=== PATIENT | male | born 1940 | race Caucasian/White ===

== ENCOUNTER 2017-09-20 20:38 | Inpatient (IN) | payer MEDICARE, OTHER ==
[~2017-09-20 20:38] MED LIST: ARICEPT10 MG PO; ATROVENT HFA12.9 GM INH; BAYER CHEWABLE81 MG PO; BETAPACE 80 MG80 MG PO; ELIQUIS5 MG PO; FLOMAX0.4 MG PO; PEPCID40 MG PO; VITAMIN D50000 UNIT PO; ZOCOR40 MG PO
[2017-09-20 21:28] LABS: APPEARANCE CLEAR (CLEAR); BILIRUBIN NEGATIVE (NEGATIVE); COLOR YELLOW (YELLOW); GLUCOSE NEGATIVE (NEGATIVE); KETONE NEGATIVE (NEGATIVE); NITRITE NEGATIVE (NEGATIVE); PROTEIN NEGATIVE (NEGATIVE); UROBILINOGEN NORMAL (NORMAL)
[2017-09-20 21:29] LABS: BACTERIA FEW /hpf (NONE SEEN); RED CELLS - URINE >50 /hpf (0-5); WHITE CELLS - URINE 0-5 /hpf (0-5)
[2017-09-20 22:14] LABS: BASOPHILS 0 % (0-2); EOSINOPHILS 0 % (0-7); HEMATOCRIT 51.3 % (42.0-54.0); HEMOGLOBIN 17.4 g/dL (13.5-17.5); IMMATURE GRANULOCYTES 0.2 % (0-5); LYMPHOCYTES 4.4 % (15-50); MCH 33.9 pg (26.0-34.0); MCHC 33.9 g/dL (31.0-37.0); MCV 99.8 fL (80.0-100.0); MEAN PLATELET VOLUME 10.7 fL (7.4-10.4); MONOCYTES 6.8 % (2-11); NEUTROPHILS 88.6 % (40-80); PLATELET COUNT 183 10x3/uL (130-400); RBC 5.14 10x6/uL (4.20-6.10); RDW 13.1 % (11.5-14.5); WBC 16.5 10x3/uL (4.8-10.8)
[2017-09-20 22:23] LABS: APTT 27.4 SECONDS (22.8-39.4); INR 1.21 (0.85-1.17); PROTIME 15.2 SECONDS (11.6-15.0)
[2017-09-20 22:28] LABS: ALBUMIN 3.7 g/dL (3.4-5.0); ANION GAP 13.3 mmol/L (8-16); BILIRUBIN - TOTAL 0.8 mg/dL (0.2-1.3); CALCIUM 9.9 mg/dL (8.5-10.1); CARBON DIOXIDE 26.8 mmol/L (21.0-32.0); CREATININE - SERUM 3.3 mg/dL (0.6-1.3); POTASSIUM - SERUM 4.1 mmol/L (3.5-5.1); PROTEIN - SERUM 7.1 g/dL (6.4-8.2)
[2017-09-20 22:35] LABS: MAGNESIUM - SERUM 2.3 mg/dL (1.8-2.4); TROPONIN-I 0.019 ng/mL (0.000-0.060)
[2017-09-21] VITALS (7 sets, daily range): BP systolic 121–144; BP diastolic 79–89; BMI 17.2; BMI 24.8
[2017-09-21] MEDS ORDERED: CIPRO500 MG PO (03:36)
[2017-09-21] MEDS ORDERED: TRAZODONE HCL150 MG PO (03:36)
[2017-09-21] MEDS ORDERED: COLACE100 MG PO (03:37)
[2017-09-21] MEDS ORDERED: PHILLIPS'400 MG/5 M PO (03:40)
[2017-09-21] MEDS ORDERED: MYLANTA / MAALO30 ML PO (03:41)
[2017-09-21] MEDS ORDERED: ACETAMINOPHEN325 MG PO (03:42)
[2017-09-21 05:46] LABS: BASOPHILS 0.1 % (0-2); EOSINOPHILS 0.2 % (0-7); HEMATOCRIT 47.2 % (42.0-54.0); HEMOGLOBIN 16.1 g/dL (13.5-17.5); IMMATURE GRANULOCYTES 0.2 % (0-5); LYMPHOCYTES 10.2 % (15-50); MCH 33.8 pg (26.0-34.0); MCHC 34.1 g/dL (31.0-37.0); MCV 99.2 fL (80.0-100.0); MONOCYTES 8.4 % (2-11); NEUTROPHILS 80.9 % (40-80); PLATELET COUNT 156 10x3/uL (130-400); RBC 4.76 10x6/uL (4.20-6.10); RDW 13.1 % (11.5-14.5); WBC 12.7 10x3/uL (4.8-10.8)
[2017-09-21 05:59] LABS: ANION GAP 11.2 mmol/L (8-16); CALCIUM 8.9 mg/dL (8.5-10.1); CARBON DIOXIDE 27.5 mmol/L (21.0-32.0); POTASSIUM - SERUM 3.7 mmol/L (3.5-5.1)
[2017-09-21 06:00] LABS: CREATININE - SERUM 1.4 mg/dL (0.6-1.3)
--- NOTE | 2017-09-21 08:07 | NUR ---
AM ROUNDS - PT IS IN BED AND AWAKE AT THIS TIME. BECERRIL DRAINING BLOOD. PT PULLED ON BECERRIL AND HAD SPLIT HIS PENIS. BECERRIL IS STILL INTACT. BECERRIL HAD BEEN FLUSHED. PT PULLED OUT IV. PT PULLED OFF HEART MONITOR. GRACIE MAT ON AND WORKING. PT IS CONFUSED. BED AT LOWEST POSITION. CALL GALLARDO IN REACH. SIDE RAILS UP X2. WILL CONTINUE TO MONITOR
--- NOTE | 2017-09-21 19:43 | NUR ---
RECEIVED REPORT, WILL ASSUME CARE OF PT, PT IS CONFUSED, WOULD LIKE TO BE DRESSED FOR VISTORS, EXPLAINED IT NIGHTTIME, BED IS LOW, SRX2, GRACIE ALARM IS ON, CALL LIGHT IN REACH, WILL CONTINUE PLAN OF CARE
[2017-09-22] VITALS: BP 107/67
--- NOTE | 2017-09-22 01:25 | NUR ---
LYING IN BED, WILL CONTINUE WITH PLAN OF CARE.
--- NOTE | 2017-09-22 01:55 | NUR ---
ASSESSMENT COMPLETE, SEE FLOWSHEET, PT SLEEPING, BED IS LOW, SRX2, GRACIE ALARM AND BED ALARM ON, CALL LIGHT IN REACH,WILL CONTINUE PLAN OF CARE
[2017-09-22 04:00] VITALS: BP 98/44
--- NOTE | 2017-09-22 07:40 | NUR ---
AM ROUNDS - PT IN BED AND APEARS TO BE SLEEPING WITH EQUAL AND NON LABORED BREATHING AT THIS TIME. AT BEDSIDE. NO IV, PT PULLS OUT. BECERRIL DRAINING AND IS DARK BROWN IN COLOR. GRACIE MAT AND BED ALARM ON. PT PULLS OFF HEART MONITOR. SCD ARE ON AT THIS TIME. BED AT LOWEST POSITION. CALL GALLARDO IN REACH. SIDE RAILS UP X2. WILL CONTINUE TO MONITOR
[2017-09-22 08:00] VITALS: BP 141/79
[2017-09-22 08:42] LABS: BASOPHILS 0.1 % (0-2); EOSINOPHILS 0.6 % (0-7); HEMATOCRIT 47.1 % (42.0-54.0); HEMOGLOBIN 15.9 g/dL (13.5-17.5); IMMATURE GRANULOCYTES 0.2 % (0-5); LYMPHOCYTES 12.5 % (15-50); MCH 33.8 pg (26.0-34.0); MCHC 33.8 g/dL (31.0-37.0); MEAN PLATELET VOLUME 10.4 fL (7.4-10.4); NEUTROPHILS 79.6 % (40-80); PLATELET COUNT 149 10x3/uL (130-400); RBC 4.71 10x6/uL (4.20-6.10); RDW 12.6 % (11.5-14.5)
[2017-09-22 08:47] LABS: WBC 9.5 10x3/uL (4.8-10.8)
[2017-09-22 09:20] LABS: CALCIUM 8.8 mg/dL (8.5-10.1); CARBON DIOXIDE 30.1 mmol/L (21.0-32.0); CHLORIDE - SERUM 109 mmol/L (98-107); GLUCOSE 136 mg/dL (74-106); POTASSIUM - SERUM 4.2 mmol/L (3.5-5.1); SODIUM 141 mmol/L (136-145)
[2017-09-22 09:21] LABS: CALC OSMOLALITY 283 mosm/kg (275-300); CREATININE - SERUM 0.8 mg/dL (0.6-1.3); UREA NITROGEN 15 mg/dL (7-18); eGFR NON AFRICAN AMERICAN > 90 mL/min (90-120)
--- NOTE | 2017-09-22 09:54 | NUR ---
WENT TO GIVE PT MONRNING MEDICATION. PT WILL ONLY WAKE TO PAINFUL STIMULI. PT WILL NOT WAKE TO TAKE MEDICATIONS. FAMILY IS CONCERNED ABOUT PT'S PO INTAKE. PT HAS NO IV DO TO HIM PULLING OUT IVS THAT ARE PLACED. PT IS TAKING IN MINIMAL PO. WILL CONTINUE TO MONITOR
[2017-09-22 12:00] VITALS: BP 124/71
[2017-09-22 16:00] VITALS: BP 137/84
--- NOTE | 2017-09-22 19:28 | NUR ---
RECEIVED REPORT, WILL ASSUME CARE OF PT, PT IS CONFUSED AT THIS TIME, BED IS LOW, SRX3, CALL LIGHT IN REACH, GRACIE ALARM AND BED ALARM ARE ON, WILL CONTINUE PLAN OF CARE
[2017-09-22 20:00] VITALS: BP 133/91
--- NOTE | 2017-09-22 23:16 | NUR ---
PT RESTING WITH EYES SCLOSED. RESP EVEN AND REGULAR. SR UP X2, CALL LIGHT WITHIN REACH.
[2017-09-23 04:00] VITALS: BP 129/69
[2017-09-23 06:27] LABS: BASOPHILS 0.1 % (0-2); EOSINOPHILS 1.9 % (0-7); HEMATOCRIT 49.1 % (42.0-54.0); HEMOGLOBIN 16.8 g/dL (13.5-17.5); IMMATURE GRANULOCYTES 0.1 % (0-5); MCH 34.2 pg (26.0-34.0); MCHC 34.2 g/dL (31.0-37.0); MEAN PLATELET VOLUME 11.2 fL (7.4-10.4); MONOCYTES 6.4 % (2-11); NEUTROPHILS 75.5 % (40-80); PLATELET COUNT 154 10x3/uL (130-400); RBC 4.91 10x6/uL (4.20-6.10); RDW 12.6 % (11.5-14.5); WBC 8.3 10x3/uL (4.8-10.8)
[2017-09-23 06:52] LABS: CALC OSMOLALITY 286 mosm/kg (275-300); CALCIUM 9.1 mg/dL (8.5-10.1); CARBON DIOXIDE 31.7 mmol/L (21.0-32.0); CHLORIDE - SERUM 107 mmol/L (98-107); CREATININE - SERUM 0.8 mg/dL (0.6-1.3); GLUCOSE 97 mg/dL (74-106); POTASSIUM - SERUM 3.7 mmol/L (3.5-5.1); SODIUM 144 mmol/L (136-145); UREA NITROGEN 13 mg/dL (7-18); eGFR NON AFRICAN AMERICAN > 90 mL/min (90-120)
[2017-09-23 08:00] VITALS: BP 119/74
--- NOTE | 2017-09-23 13:35 | NUR ---
Nutrition Follow Up: Spoke with pt's who reported that pt is eating some better. stated that pt likes Ensure and ice cream. Nursing reported that pt needs assistance during meal times to be reminded to eat. Pt is eating 33% meal avg on a regular pureed diet. +BM 09/23/17. Labs and meds reviewed. Rec continue current diet. Rec assistance with meals. Will send Ensure TID and ice-cream BID. RD following.
[2017-09-23 16:00] VITALS: BP 122/71
--- NOTE | 2017-09-23 16:45 | NUR ---
CONFUSED. CONTINUES TRYING TO GET OUT OF BED. BECERRIL CATHETER PULLED OUT. URINE BLOODY. ASSIST CLEANING UP AND BACK IN BED X2 NURSES. PAGE TO INFORM OF INCIDENT. CONTINUE PLAN OF CARE. BED LOCKED AND LOW. CALL LIGHT IN REACH. THREE SIDERAIL UP. REFUSE SCDs.
--- NOTE | 2017-09-23 18:20 | NUR ---
GRACIE BED ORDERED AND ARRIVED. PLACE IN GRACIE BED. ZIPPERS SECURED FOR PATIENT SAFETY. PREPARE SHIFT CHANGE REPORT.
[2017-09-23 19:00] VITALS: BP 108/63
--- NOTE | 2017-09-23 20:27 | NUR ---
PT IN BED RESTING QUIETLY. GRACIE BED OPENED AND PT GIVEN WATER AND MEDICATION. BREATHING EVEN AND UNLABORED. DENIES ANY PAIN OR NEEDS AT THIS TIME. BED IN LOW POSITION, CALL LIGHT WITHIN REACH.
--- NOTE | 2017-09-23 21:39 | NUR ---
OPENED GRACIE BED TO CHANGE PTS LINEN. PT BEGAN SHOWING S/S AGITATION AND ATTEMPTING TO CRAWL OUT OF THE BED. GAVE PT PRN ATIVAN. BREATHING EVEN AND UNLABORED. BED IN LOW POSITION, CALL LIGHT WITHIN REACH. WILL CTM.
[2017-09-24] VITALS: BP 115/66
--- NOTE | 2017-09-24 02:00 | NUR ---
PT IN GRACIE BED. RESTING QUIETLY WITH EYES CLOSED. BED IN LOW POSITION, CALL LIGHT WITHIN REACH.
--- NOTE | 2017-09-24 03:43 | NUR ---
PT STARTED TAKING CLOTHES AND BREIFS OFF AND WAS SIDEWAYS IN THE GRACIE BED AND HAD AN INCONTINENT EPISODE. WENT TO STRAIGHTEN UP PT AND CLEAN HIM UP AND HE BECAME VERY AGITATED AND UPSET. PRN ATIVAN GIVEN. WILL CTM. BED IN LOW POSITION, CALL LIGHT WITHIN REACH.
[2017-09-24 04:00] VITALS: BP 130/105
--- NOTE | 2017-09-24 05:00 | NUR ---
PT RESTING IN BED. NO DISTRESS. CPOC.
--- NOTE | 2017-09-24 07:10 | NUR ---
RECEIVED REPORT. ASSUMED CARE OF PATIENT. PATIENT IN POSEYBED. RESP EVEN AND UNLABORED. NO ACUTE DISTRESS. PATIENT SPEECH IS GARBLED, NOT ANSWERING QUESTIONS, JUST MUMBLING. REFUSING SCDS, REFUSING TELEMETRY.
--- NOTE | 2017-09-24 07:25 | NUR ---
PATIENT RESTING IN GRACIE BED. CONFUSED. PATIENT TURNING FROM SIDE TO BACK AND PULLING AT SIDES OF GRACIE BED. SPEECH IS INCOMPREHENSIBLE, VERY GARBLED. RESP EVEN AND UNLABORED. NO ACUTE DISTRESS.
[2017-09-24 08:00] VITALS: BP 161/109
--- NOTE | 2017-09-24 09:00 | NUR ---
PATIENT TOLERATED AM MEDS WELL IN [place]AN[place]A PUDDING. CONSUMED ENTIRE PUDDING CUP. PO FLUIDS ENCOURAGED AND TOLERATED WELL. NO COMBATIVE BEHAVIOR AT THIS TIME. NO DISTRESS.
--- NOTE | 2017-09-24 10:30 | NUR ---
PATIENT TURNED AND REPOSITIONED. PO FLUIDS ENCOURAGED AND TOLERATED WELL. NO DISTRESS. RESP EVEN AND UNLABORED. PATIENTS IS NOW AT BEDSIDE.
[2017-09-24 11:24] VITALS: BP 158/113
[2017-09-24] MEDS ORDERED: Levaquin PO (11:45)
[2017-09-24] MEDS ORDERED: FLOMAX0.4 MG PO (11:46)
[2017-09-24] MEDS ORDERED: CARDURA1 MG PO (11:47)
[2017-09-24] MEDS ORDERED: BETAPACE 80 MG80 MG PO (11:48)
[2017-09-24] MEDS ORDERED: PEPCID20 MG PO (11:49)
[2017-09-24] MEDS ORDERED: FLORAJEN3 CAPS460 MG PO (11:49)
[2017-09-24] MEDS ORDERED: VITAMIN D5000 UNIT PO (11:50)
--- NOTE | 2017-09-24 12:55 | NUR ---
UNABLE TO ASK PT IF HE WANTS FLU VACCINE. PT WITH DEMENTIA AND UNABLE TO ANSWER CORRECTLY.
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
--- NOTE | 2017-09-24 14:10 | NUR ---
RESTING IN BED WITH EYES CLOSED. RESP EVEN AND UNLABORED. NO COMBATIVE BEHAVIOR. CALL LIGHT WITHIN REACH. NO DISTRESS.
[2017-09-24 16:00] VITALS: BP 152/80
--- NOTE | 2017-09-24 17:03 | NUR ---
CALLED LONG TERM AND SPOKE TO BECKY. REPORT GIVEN. PATIENT TO BE TRANSFERRED TO ROOM 1133.
--- NOTE | 2017-09-24 17:06 | NUR ---
CALLED AND SPOKE TO PATIENTS TO NOTIFY HER THAT PATIENT WILL BE TRANSFERRED TO ROOM 1138 AND GAVE HER THE DIRECT NUMBER TO THE NURSES STATION IN CASE SHE WOULD LIKE TO CALL AND CHECK ON HIM THIS EVENING. INSTRUCTED HER TO CALL IF SHE HAD ANY QUESTIONS FOR US. SHE THANKED THIS ANESTHESIOLOGIST ASSISTANT CERTIFIED FOR CALLING TO LET HER KNOW OF THE TRANSFER.
--- NOTE | 2017-09-24 17:51 | NUR ---
PATIENT LEFT UNIT VIA WHEELCHAIR WITH ALL PERSONAL BELONGINGS. PATIENT TRANSFERRED DOWN TO ROOM 1133 IN [facility]. NO DISTRESS UPON LEAVING UNIT.
== END 2017-09-24 17:53 | disposition short-term general hospital (02) | DRG 683 ==
LOC: D.ER 20:38 → D.M2 23:32
PROVIDERS: Emergency Medicine; Physician Assistant Medical; ADMIT Family Medicine
PROC: 0T9B70Z Drainage of Bladder with Drainage Device, Via Natural or Artificial Opening (ICD-10-PCS; principal; 2017-09-20)
DX: N17.9 Acute kidney failure, unspecified (principal); N39.0 Urinary tract infection, site not specified; I69.954 Hemiplegia and hemiparesis following unspecified cerebrovascular disease affecting left non-dominant side; F02.81 Dementia in other diseases classified elsewhere, unspecified severity, with behavioral disturbance; S37.33XA Laceration of urethra, initial encounter; I48.2 Chronic atrial fibrillation; I69.919 Unspecified symptoms and signs involving cognitive functions following unspecified cerebrovascular disease; G31.83 Neurocognitive disorder with Lewy bodies; K21.9 Gastro-esophageal reflux disease without esophagitis; N40.0 Benign prostatic hyperplasia without lower urinary tract symptoms; Z74.09 Other reduced mobility; E78.5 Hyperlipidemia, unspecified; J44.9 Chronic obstructive pulmonary disease, unspecified; E55.9 Vitamin D deficiency, unspecified; F10.10 Alcohol abuse, uncomplicated; E86.0 Dehydration; K59.00 Constipation, unspecified; Y84.6 Urinary catheterization as the cause of abnormal reaction of the patient, or of later complication, without mention of misadventure at the time of the procedure; Z95.0 Presence of cardiac pacemaker; Z72.0 Tobacco use

== ENCOUNTER 2017-09-24 18:36 | Inpatient (IN) | payer MEDICARE, OTHER ==
--- NOTE | 2017-09-24 17:55 | NUR ---
Received patient to unit via W/C with staff from [facility], oriented to self only. admitted for Dementia with behaviors, was aggressive upstairs to point of requiring one on one. Presently calm but uinccoperative with transferring to different w/c, required 2 person assist. Spouse Olena Brown contacted, verbal consent given. States she is not sure about the code status, stating she will bring patients living will on .
[~2017-09-24 18:36] MED LIST changes: +ACETAMINOPHEN325 MG PO; +CARDURA1 MG PO; +CIPRO500 MG PO; +COLACE100 MG PO; +FLORAJEN3 CAPS460 MG PO; +Levaquin PO; +MYLANTA / MAALO30 ML PO; +PEPCID20 MG PO; +PHILLIPS'400 MG/5 M PO; +TRAZODONE HCL150 MG PO; +VITAMIN D5000 UNIT PO
[2017-09-24 20:39] VITALS: BP 142/58
[2017-09-24 21:07] VITALS: BP 142/58; BMI 24.2
--- NOTE | 2017-09-25 03:18 | NUR ---
RECEIVED IN HALLWAY. SITTING IN RECLINER OUTSIDE OF NURSES STATION. VERY CONFUSED. UNABLE TO ANSWER MOST OF HIS ADMIT ASSESSMENT QUESTIONS. CALM AND COOPERATIVE WITH CARE AND ASSESSMENTS. NO SIGNS OF AGGRESSION. REDIRECT AND REORIENT NEEDED. RESTING EYES CLOSED AT THIS TIME. CONTINUE PLAN OF CARE
[2017-09-25 07:24] LABS: HEMOGLOBIN A1C 5.8 % (4.8-6.0)
[2017-09-25 07:38] LABS: ANION GAP 12.3 mmol/L (8-16); CALCIUM 9.9 mg/dL (8.5-10.1); CARBON DIOXIDE 28.9 mmol/L (21.0-32.0); CHOL - HDL RATIO 2.5 ratio (2.3-4.9); CREATININE - SERUM 2.4 mg/dL (0.6-1.3); LDL-HDL RATIO 1.3 ratio (1.5-3.5); POTASSIUM - SERUM 4.2 mmol/L (3.5-5.1); PROTEIN - SERUM 6.8 g/dL (6.4-8.2); THYROID STIMULATING HORMONE 1.58 uIU/mL (0.36-3.74)
[2017-09-25 08:13] VITALS: BMI 24.1
[2017-09-25 10:32] VITALS: Wt 76.4 kg
--- NOTE | 2017-09-25 10:34 | NUR ---
PT IS VERY CONFUSED WITH NO INSIGHT INTO LIMITATIONS. PT HAS NO ABILITY TO RETAIN EDUCATION OR INFORMATION. PT REQUIRES FREQUENT REDIRECTION DUE TO HIS STM LOSS. NO AGGRESSION NOTED. MEDICATIONS GIVEN ORDERED. FALL PRECUATIONS MAINTAINED. WILL CONTINUE TO MONITOR AND CONTINUE WITH PLAN OF CARE.
--- NOTE | 2017-09-25 11:00 | NUR ---
HELD PATIENT'S LACTOBICILLIS D/T PATIENT IS SLEEPING AND UNABLE TO AWAKEN.
[2017-09-25 11:21] VITALS: BP 166/104
--- NOTE | 2017-09-25 18:32 | NUR ---
Alert, calm, resting in chair in day room. No s/s pain or distress.
[2017-09-25 19:38] VITALS: BP 105/68
--- NOTE | 2017-09-26 02:01 | NUR ---
RECEIVED IN HALLWAY. SITTING IN RECLINER OUTSIDE OF NURSES STATION. CALM AND COOPERATIVE [facility] CARE AND ASSESSMENT. NO SIGNS OF AGGRESSION THIS PM. REDIRECT AND REORIENT NEEDED. RESTING IN BED WITH EYES CLOSED AT THIS TIME. CONTINUE PLAN OF CARE.
--- NOTE | 2017-09-26 05:44 | PSY ---
PATIENT NAME:WASHINGTON ANGLIN MEDICAL RECORD: [id number] : 39 LOCATION:[facility] ADMISSION DATE: 09/24/17 ACCOUNT: [id number] PSYCHIATRIC EVALUATION DATE OF EVALUATION: 09/25/17 IDENTIFYING DATA: A 77-year-old white male with past history of dementia, transferred from the medical floor. HISTORY OF PRESENT ILLNESS: This patient was diagnosed with Lewy body dementia several years ago. He also has a past history of cerebrovascular disease and likely has elements of vascular dementia as well. He also has a past history of alcohol abuse. The patient is a resident of [facility]. He developed a significant urinary tract infection, which resulted in his admission to the medical floor. At the time of admission, the patient was very disoriented and confused. He did not understand that he was in the hospital or why he was here. The past treatment has included anxiolytics and Aricept. The patient has not been treated with antipsychotic medications. This is appropriate considering his diagnosis. PAST MEDICAL HISTORY: Significant for recent urinary tract infection, also history of hypertension, old CVA, gastroesophageal reflux disease, hyperlipidemia, COPD, and vitamin D deficiency. ALLERGIES: INCLUDE HALDOL AND AMBIEN. FAMILY HISTORY: Essentially noncontributory. SOCIAL HISTORY: The patient has been a current smoker. Also, has a past history of alcohol abuse. The patient is . MENTAL STATUS: On interview, the patient is rather sleepy this morning. He required p.r.n. medication last night because of agitation. Mood is for the most part euthymic. Affect is very constricted. Speech is terse. Content of thought is negative for overt psychosis. The patient is oriented only to person. He has global memory impairment. ASSESSMENT: AXIS I: Lewy body dementia. AXIS II: No diagnosis. AXIS III: Urinary tract infection, chronic atrial fibrillation, hypertension, past history of cerebrovascular disease, gastroesophageal reflux disease, chronic obstructive pulmonary disease, benign prostatic hyperplasia, hyperlipidemia, and vitamin D deficiency. AXIS IV: Severe. AXIS V: 36. PLAN: 1. The patient is admitted for further workup and medication adjustment as indicated. 2. Daily supportive therapy. 3. We will assist referring physician and family with aftercare plans. TRANSINT:[id number] Voice Confirmation ID: [id number] DOCUMENT ID: [id number] YVETTE ALMANZAR III, MD at 0544 CC: [id number] DICTATION DATE: 09/25/17 112 MORTGAGE ADVISOR: 09/25/17 1143 ADM IN [place] [id number] [place] [address]
[2017-09-26 07:24] LABS: FOLATE (FOLIC ACID) - SERUM 14.4 ng/mL (>3.0); RAPID PLASMA REAGIN Non Reactive (Non Reactive); VITAMIN D 25 HYDROXY 47.1 ng/mL (30.0-100.0)
[2017-09-26 07:54] LABS: ANION GAP 12.5 mmol/L (8-16); CALCIUM 9.8 mg/dL (8.5-10.1); CARBON DIOXIDE 28.1 mmol/L (21.0-32.0); CREATININE - SERUM 4.1 mg/dL (0.6-1.3); POTASSIUM - SERUM 4.6 mmol/L (3.5-5.1)
[2017-09-26 08:30] VITALS: BP 110/76
--- NOTE | 2017-09-26 15:15 | NUR ---
B) PATIENT IS MORE ALERT THIS AFTERNOON, HE IS ABLE TO ANSWER QUESTIONS APPROPRIATELY, HE SAYS HE WAS ON REHAB TO GET STRONGER BECAUSE APPARENTLY HE WAS ON A DRUG THAT SEDATED HIM AND HE CAUGHT PNEUMONIA. HE SAYS HE WAS WALKING AT HOME PRIOR TO HOSPITALIZATION. I) PROVIDE PRESCRIBED MEDS. R) PATIENT IS COMPLIANT WITH MEDS AND UNIT MILIEU. P) CONTINUE POC.
--- NOTE | 2017-09-26 16:11 | NUR ---
CALLED DR. BELTRAN'S OFFICE TO LET THEM KNOW DR. BELTRAN HAS A CONSULT FROM DR. BUCIO. STAFF STATED THEY WILL LET HIM KNOW.
[2017-09-26 19:30] VITALS: BP 137/72
--- NOTE | 2017-09-27 03:31 | NUR ---
B) patient is alert and oriented, calm and cooperative with care and assessment, I) Administered scheduled medications, monitored for aggression and for safety R) medication compliant, no aggression noted, calm and cooperative, P) Continue plan of care.
--- NOTE | 2017-09-27 07:21 | NUR ---
PATIENT HAS NOT VOIDED URINE ALL NIGHT, CALLED DR. BUCIO, DID DO A BLADDER SCAN AND HE HAS 521 ML IN BLADDER, ASKED DR. BUCIO IF HE WANTED ME TO DO AN IN AND OUT, HE SAID "NO, HE IS A CHRONIC BLADDER AND HE HAS PULLED HIS BECERRIL OUT." DR. BUCIO SUGGESTS WE CONSULT DR. JUNE WE DO NOT WANT TO CAUSE TRAUMA. WILL CONSULT.
[2017-09-27 07:34] LABS: ANION GAP 15.5 mmol/L (8-16); CALCIUM 9.4 mg/dL (8.5-10.1); CARBON DIOXIDE 27.2 mmol/L (21.0-32.0); POTASSIUM - SERUM 4.7 mmol/L (3.5-5.1); URIC ACID 9.1 mg/dL (2.6-7.2)
[2017-09-27 07:40] LABS: CREATININE - SERUM 5.8 mg/dL (0.6-1.3)
--- NOTE | 2017-09-27 08:15 | NUR ---
PATIENT HAD U/S OF KIDNEYS, SHE ADVISES A BECERRIL, SPOKE TO DR BUCIO, HE SAYS TO INSERT A BECERRIL AND LEAVE IT IN.
--- NOTE | 2017-09-27 08:26 | NUR ---
16 FR BECERRIL INSERTED INTO URETHA, IMMEDIATE RETURN WITH SMALL AMOUNT OF BLOOD NOTED. DID CLAMP OFF TUBING AFTER 1000 CC. DID OBTAIN UA/C&S.
[2017-09-27 08:30] VITALS: BP 116/71
[2017-09-27 09:03] LABS: APPEARANCE CLEAR (CLEAR); BILIRUBIN NEGATIVE (NEGATIVE); COLOR YELLOW (YELLOW); GLUCOSE NEGATIVE (NEGATIVE); KETONE NEGATIVE (NEGATIVE); NITRITE NEGATIVE (NEGATIVE); PROTEIN NEGATIVE (NEGATIVE); SPECIFIC GRAVITY 1.015 (1.005-1.020); UROBILINOGEN NORMAL (NORMAL)
[2017-09-27 09:04] LABS: BACTERIA FEW /hpf (NONE SEEN); EPITHELIAL CELLS 0-5 /hpf (0-5); HYALINE CAST 0-5 /lpf (NONE SEEN); MUCUS <1+ /lpf (NONE SEEN); WHITE CELLS - URINE 0-5 /hpf (0-5)
--- NOTE | 2017-09-27 10:01 | PN ---
PATIENT:WASHINGTON ANGLIN MEDICAL RECORD: [id number] LOCATION:[facility] ADMISSION DATE: 09/24/17 PROGRESS NOTE DATE OF SERVICE: 09/26/2017 SUBJECTIVE: No new complaint. OBJECTIVE: The patient remains sleepy. He is not receiving any routine sedating psychiatric medications. He is passively cooperative. On exam, mood is euthymic. Affect constricted. Speech is minimal. Content of thought is negative for clear cut psychosis. Sensorium is unchanged. ASSESSMENT: No change in diagnosis. PLAN: Continue close observation and supportive therapy. TRANSINT:[id number] Voice Confirmation ID: [id number] DOCUMENT ID: [id number] YVETTE ALMANZAR III, MD at 1001 CC: [id number] DICTATION DATE: 09/26/17 1211 FACILITIES OPERATIONS TECHNICIAN: 09/26/17 1221 ADM IN [facility] [address] [place] [address]
--- NOTE | 2017-09-27 10:06 | NUR ---
UNCLAPPED PATIENTS BECERRIL CATH TUBING, IMMEDIATE RETURN OF 500 ML, PATIENT IS GRABBING AND STATING "I'VE GOT TO PEE." RECLAMPED BECERRIL, WILL UNCLAMP AND LET FREE FLOW.
--- NOTE | 2017-09-27 11:00 | NUR ---
DR. BELTRAN HERE TO ASSESS PATIENT AND HE STATES TO UNCLAMP BECERRIL AND LET IT FREE FLOW. UNCLAMPED BECERRIL NOW.
--- NOTE | 2017-09-27 13:06 | NUR ---
D/C'D DR. JUNE CONSULT PER DR. BUCIO'S ORDER.
--- NOTE | 2017-09-27 13:20 | NUR ---
B) PATIENT IS AWAKE AND HE DID EAT WELL AT LUNCH, HE IS TOLERATING HIS BECERRIL AND HE HAS NOT TRIED TO PULL IT OUT AT THIS TIME, HE KNOWS HIS NAME AND THAT IS ALL. I) PROVIDE PRESCRIBED MEDS. R) PATIENT IS COMPLIANT WITH MEDS. P) CONTINUE POC.
[2017-09-27 19:30] VITALS: BP 95/54
--- NOTE | 2017-09-28 03:33 | NUR ---
B) Patient is alert and oriented to self, calm and cooperative, very confused I) Administered scheduled medications, monitored for safety R) medication compliant, resting quietly in bed. P) Continue plan of care.
--- NOTE | 2017-09-28 05:45 | PN ---
PATIENT:WASHINGTON ANGLIN MEDICAL RECORD: [id number] LOCATION:[facility] ADMISSION DATE: 09/24/17 PROGRESS NOTE DATE OF SERVICE: 09/27/2017 SUBJECTIVE: No new complaint. OBJECTIVE: The patient remains quite confused. Speech for the most part is nonsensical. He does have a very significant urinary tract infection, both nephrology and urology have been consulted. On exam, mood is euthymic. Affect is constricted. Speech is quite terse. Content of thought is negative for overt psychosis. Sensorium shows no change. ASSESSMENT: No change in diagnosis. PLAN: 1. We will discontinue Aricept. 2. Continue other current medications. 3. Continue supportive therapy. TRANSINT:[id number] Voice Confirmation ID: [id number] DOCUMENT ID: [id number] YVETTE ALMANZAR III, MD at 0545 CC: [id number] DICTATION DATE: 09/27/17 1158 RN PROGRESSIVE CARE UNIT: 09/27/17 1206 ADM IN [place] [id number] [place] [id number]
--- NOTE | 2017-09-28 07:30 | NUR ---
B) PATIENT IS AWAKENING AND HE IS AGITATED, WALKED INTO ROOM MHT'S ARE GETTING HIM UP, HE IS BLEEDING AROUND HIS URETHRA HE CONTINUES TO PULL AND TUG ON HIS BECERRIL CATH, HE HAS PULLED OFF HIS STAT LOCK, AND HE HAS BLOOD IN HIS BECERRIL TUBING AND BAG. HAS ALREADY VOIDED 1100 ML. PATIENT CAN STAND AND WALK, BUT HE IS VERY UNSTEADY CAN ONLY GO A FEW FEET. PATIENT IS ORIENTED TO SELF ONLY. I) PROVIDE PRESCRIBED MEDS. R) PATIENT IS COMPLIANT WITH MEDS. P) CONTINUE POC.
[2017-09-28 08:00] VITALS: BP 115/76
[2017-09-28 08:08] LABS: BASOPHILS 0.1 % (0-2); EOSINOPHILS 0.9 % (0-7); HEMATOCRIT 49.6 % (42.0-54.0); HEMOGLOBIN 17.1 g/dL (13.5-17.5); IMMATURE GRANULOCYTES 0.2 % (0-5); LYMPHOCYTES 11.6 % (15-50); MCHC 34.5 g/dL (31.0-37.0); MCV 98.6 fL (80.0-100.0); MEAN PLATELET VOLUME 10.5 fL (7.4-10.4); MONOCYTES 7.1 % (2-11); NEUTROPHILS 80.1 % (40-80); RBC 5.03 10x6/uL (4.20-6.10); RDW 13.1 % (11.5-14.5); WBC 11.6 10x3/uL (4.8-10.8)
[2017-09-28 08:10] LABS: PLATELET COUNT 199 10x3/uL (130-400)
[2017-09-28 08:16] LABS: ANION GAP 8.7 mmol/L (8-16); CALCIUM 9.2 mg/dL (8.5-10.1); CARBON DIOXIDE 31.1 mmol/L (21.0-32.0); CREATININE - SERUM 1.3 mg/dL (0.6-1.3); POTASSIUM - SERUM 3.8 mmol/L (3.5-5.1)
--- NOTE | 2017-09-28 12:00 | NUR ---
DR. BELTRAN WROTE A NURSING NOTE TO DISREGARD IV UNTIL BEDTIME THEN TRY.
[2017-09-28 19:30] VITALS: BP 163/86
--- NOTE | 2017-09-29 04:43 | NUR ---
B) Patient is alert and oriented to name, much more active this shift, will not leave his billingsley alone, keeps gretta at tubing, I) Administered scheduled medications, monitored for safety, redirected as needed R) Medication compliant, restless and difficult to redirect P) Continue plan of care.
[2017-09-29 05:58] LABS: BASOPHILS 0.1 % (0-2); EOSINOPHILS 0.8 % (0-7); HEMATOCRIT 50.7 % (42.0-54.0); HEMOGLOBIN 17.2 g/dL (13.5-17.5); IMMATURE GRANULOCYTES 0.2 % (0-5); LYMPHOCYTES 9.4 % (15-50); MCH 33.9 pg (26.0-34.0); MCHC 33.9 g/dL (31.0-37.0); MEAN PLATELET VOLUME 10.6 fL (7.4-10.4); MONOCYTES 7.7 % (2-11); NEUTROPHILS 81.8 % (40-80); PLATELET COUNT 216 10x3/uL (130-400); RBC 5.07 10x6/uL (4.20-6.10); RDW 13.2 % (11.5-14.5); WBC 12.3 10x3/uL (4.8-10.8)
[2017-09-29 06:14] LABS: ANION GAP 8.1 mmol/L (8-16); CALCIUM 9.5 mg/dL (8.5-10.1); CARBON DIOXIDE 33.9 mmol/L (21.0-32.0); CREATININE - SERUM 1.2 mg/dL (0.6-1.3)
[2017-09-29 08:00] VITALS: BP 114/63
--- NOTE | 2017-09-29 10:00 | NUR ---
B) AWAKE AND ORIENTED TO NAME ONLY. HE IS LESS RESPONSIVE TO VERBAL OR PHYSICAL ACTIVITY. HE WILL NOT DRINK LIQUIDS THRU A STRAW. HE IS VERY STIFF TODAY. I) ADMINISTERED PRESCRIBED MEDICATIONS, VSS, ASSESSMENT COMPLETED. R) COMPLIANT TO TAKING MMEDICATIONS CRUSHED IN APPLESAUCE SAUCE. P) CONTINUE PLAN OF CARE.
--- NOTE | 2017-09-29 18:00 | NUR ---
INCONTINENT OF SOFT STOOL, LARGE AMOUNT. IRIGATED BECERRIL CATHETER WITH 180CC SALINE IRRIGATION. NO RESISTANCE, OBTAINED 90CC BLOODY RETURN, BUT NO CLOTS.
[2017-09-29 19:30] VITALS: BP 129/74
--- NOTE | 2017-09-29 21:52 | NUR ---
RECEIVED IN BEDROOM. LAYING IN BED WITH EYES CLOSED. RESPONDS TO TOUCH. CALM AND COOPERATIVE WITH CARE AND ASSESSMENTS. BECERRIL INTACT. NO SIGNS OF AGGRESSION. REDIRECT AND REORIENT NEEDED. CONTINUE PLAN OF CARE
[2017-09-30 05:39] LABS: BASOPHILS 0.1 % (0-2); EOSINOPHILS 0.1 % (0-7); HEMATOCRIT 51.4 % (42.0-54.0); HEMOGLOBIN 17.1 g/dL (13.5-17.5); IMMATURE GRANULOCYTES 0.4 % (0-5); LYMPHOCYTES 6.8 % (15-50); MCH 34.1 pg (26.0-34.0); MCHC 33.3 g/dL (31.0-37.0); MEAN PLATELET VOLUME 10.9 fL (7.4-10.4); MONOCYTES 6.9 % (2-11); NEUTROPHILS 85.7 % (40-80); PLATELET COUNT 236 10x3/uL (130-400); RBC 5.02 10x6/uL (4.20-6.10); RDW 13.5 % (11.5-14.5)
[2017-09-30 05:42] LABS: MCV 102.4 fL (80.0-100.0); WBC 17.7 10x3/uL (4.8-10.8)
[2017-09-30 05:44] LABS: ALBUMIN 2.7 g/dL (3.4-5.0); ANION GAP 11.9 mmol/L (8-16); BILIRUBIN - TOTAL 0.9 mg/dL (0.2-1.3); CALCIUM 9.6 mg/dL (8.5-10.1); CARBON DIOXIDE 31.5 mmol/L (21.0-32.0); POTASSIUM - SERUM 4.4 mmol/L (3.5-5.1); PROTEIN - SERUM 6.6 g/dL (6.4-8.2)
--- NOTE | 2017-09-30 06:30 | NUR ---
BLADDER SCAN. 999 ML SCANNED. SET UP FOR IRRIGATION
--- NOTE | 2017-09-30 07:45 | NUR ---
NO OUTPUT IN BECERRIL. ATTEMPTED TO FLUSH BECERRIL. NO OUTPUT AFTER FLUSHING. CALLED DOCTOR FORTUNATO. NEW ORDER TO CONSULT DOCTOR SHAYLEE. CONSULTED AND CALLED DOCTOR SHAYLEE. NEW ORDER TO PLACE NEW BECERRIL CATHETER. NEW BECERRIL CATH PLACED. 1250 ML RETURN OUT.
[2017-09-30 09:41] VITALS: BP 126/89
--- NOTE | 2017-09-30 10:12 | PN ---
PATIENT:WASIHNGTON ANGLIN MEDICAL RECORD: [id number] LOCATION:[facility] ADMISSION DATE: 09/24/17 PROGRESS NOTE DATE OF SERVICE: 09/29/2017 SUBJECTIVE: No new complaint. OBJECTIVE: The patient continues to be quite confused. Speech is tangential and frequently nonsensical. On exam, mood is for the most part euthymic. Affect is very constricted. Content of thought is negative for clear cut psychosis. Sensorium shows no change. ASSESSMENT: No change in diagnosis. PLAN: 1. Maintain current medication. 2. Continue supportive therapy. TRANSINT:[id number] Voice Confirmation ID: [id number] DOCUMENT ID: [id number] YVETTE ALMANZAR III, MD at 1012 CC: [id number] DICTATION DATE: 09/29/17 1640 PRODUCE ASSOCIATE: 09/29/17 2245 ADM IN [place] [id number] [place] [address]
--- NOTE | 2017-09-30 21:01 | PN ---
PATIENT:WASHINGTON ANGLIN MEDICAL RECORD: [id number] LOCATION:[facility] ADMISSION DATE: 09/24/17 PROGRESS NOTE DATE OF SERVICE: 09/30/2017 SUBJECTIVE: No new complaint. OBJECTIVE: The patient continues to have great difficulties with inactive bladder. His Kaye has been changed 3 times. He is having a great deal of urinary retention. Staff has spoken to the patient's family and has strongly recommended placement in a personal senior living or equivalent level of care. On exam, mood is somewhat irritable. Affect is shallow. Speech is quite terse. Content of thought is unchanged. Sensorium is unchanged. ASSESSMENT: No change in diagnosis. PLAN: 1. Maintain current medication. 2. Continue supportive care. TRANSINT:[id number] Voice Confirmation ID: [id number] DOCUMENT ID: [id number] YVETTE ALMANZAR III, MD at 2101 CC: [id number] DICTATION DATE: 09/30/17 1052 SILK SCREEN LAYOUT DRAFTER: 09/30/17 1215 ADM IN [place] [id number] [place] [id number]
--- NOTE | 2017-09-30 22:31 | NUR ---
RECEIVED IN HALLWAY. SITTING IN RECLINER AT NURSES STATION. CONFUSED. CALM AND COOPERATIVE WITH CARE AND ASSESSMENTS. NO SIGNS OF AGGRESSIOM. REDIRECT AND REORIENT NEEDED. CONTINUES TO REST QUIETLY IN HALLWAY EYES OPEN. CONTINUE PLAN OF CARE
[2017-10-01 05:05] LABS: BASOPHILS 0 % (0-2); EOSINOPHILS 1.1 % (0-7); HEMATOCRIT 47.1 % (42.0-54.0); HEMOGLOBIN 15.2 g/dL (13.5-17.5); IMMATURE GRANULOCYTES 0.2 % (0-5); LYMPHOCYTES 12.3 % (15-50); MCH 33.6 pg (26.0-34.0); MCHC 32.3 g/dL (31.0-37.0); MEAN PLATELET VOLUME 10.7 fL (7.4-10.4); MONOCYTES 5.1 % (2-11); NEUTROPHILS 81.3 % (40-80); PLATELET COUNT 206 10x3/uL (130-400); RBC 4.53 10x6/uL (4.20-6.10); RDW 13.4 % (11.5-14.5)
[2017-10-01 05:06] LABS: WBC 12.2 10x3/uL (4.8-10.8)
[2017-10-01 05:27] LABS: ALBUMIN 2.1 g/dL (3.4-5.0); ANION GAP 9.9 mmol/L (8-16); BILIRUBIN - TOTAL 0.67 mg/dL (0.2-1.3); C-REACTIVE PROTEIN 11.6 mg/dL (0.0-0.9); CALCIUM 9.1 mg/dL (8.5-10.1); CARBON DIOXIDE 33.2 mmol/L (21.0-32.0); POTASSIUM - SERUM 4.1 mmol/L (3.5-5.1); PROTEIN - SERUM 5.8 g/dL (6.4-8.2)
[2017-10-01 05:33] LABS: CREATININE - SERUM 1.2 mg/dL (0.6-1.3)
[2017-10-01 06:09] LABS: ERYTHROCYTE SEDIMENTATION RATE 27 mm/hr (0-20)
[2017-10-01 06:57] VITALS: BP 129/75
[2017-10-01 07:07] LABS: APPEARANCE CLOUDY (CLEAR); BACTERIA MODERATE /hpf (NONE SEEN); BILIRUBIN NEGATIVE (NEGATIVE); COLOR YELLOW (YELLOW); EPITHELIAL CELLS 0-5 /hpf (0-5); GLUCOSE NEGATIVE (NEGATIVE); KETONE NEGATIVE (NEGATIVE); MUCUS <1+ /lpf (NONE SEEN); NITRITE NEGATIVE (NEGATIVE); PROTEIN 1+ mg/dL (NEGATIVE); RED CELLS - URINE >50 /hpf (0-5); SPECIFIC GRAVITY 1.015 (1.005-1.020); UROBILINOGEN NORMAL (NORMAL); WHITE CELLS - URINE 0-5 /hpf (0-5)
[2017-10-01 07:08] LABS: CALCIUM OXALATE CRYSTALS RARE /hpf (NONE SEEN); GRANULAR CAST RARE /lpf (NONE SEEN)
[2017-10-01 08:30] VITALS: BP 129/75
--- NOTE | 2017-10-01 12:43 | NUR ---
Nutrition Follow Up: Pt is eating 49% meal avg on a regular pureed diet. He is receiving Ensure and milk with meals; ice-cream BID. +BM 09/29/17. Labs reviewed - Na elevated. Meds noted including D5W @ 125 ml/hr. Rec continue current diet. Will continue to honor food preferences. RD following.
--- NOTE | 2017-10-01 13:00 | NUR ---
AWAKE AND ALERT, CALM AND COOPERATIVE WITH CARE AND ASSESSMENT. FED HIMSELF BREAKFAST AND LUNCH. PLEASANT MOOD, RESTING IN RECLINER. MEDICATION COMPLIANT. CONTINUE POC.
[2017-10-01 13:29] LABS: CALC OSMOLALITY 301 mosm/kg (275-300); CALCIUM 9.2 mg/dL (8.5-10.1); CARBON DIOXIDE 32.1 mmol/L (21.0-32.0); CHLORIDE - SERUM 111 mmol/L (98-107); POTASSIUM - SERUM 3.7 mmol/L (3.5-5.1); SODIUM 149 mmol/L (136-145); UREA NITROGEN 30 mg/dL (7-18); eGFR NON AFRICAN AMERICAN 77 mL/min (90-120)
[2017-10-01 13:33] LABS: GLUCOSE 100 mg/dL (74-106)
[2017-10-01 20:25] VITALS: BP 146/70
--- NOTE | 2017-10-01 23:05 | NUR ---
RECEIVED IN HALLWAY. RESTING IN RECLINER WITH EYES OPEN. VERY CONFUSED. PULLING AT HIS BECERRIL. CALM AND COOPERATIVE WITH CARE AND ASSESSMENTS. IV IN RIGHT FOREARM. SALINE LOCKED. REDIRECT AND REORIENT. CONTINUES TO REST IN RECLINER IN HALLWAY. CONTINUE PLAN OF CARE
--- NOTE | 2017-10-01 23:45 | NUR ---
PRN Ativan 1 mg IM given for anxiety at 22:03.
[2017-10-02 08:48] LABS: CALCIUM 8.9 mg/dL (8.5-10.1); CARBON DIOXIDE 29.1 mmol/L (21.0-32.0); CHLORIDE - SERUM 110 mmol/L (98-107); GLUCOSE 135 mg/dL (74-106); POTASSIUM - SERUM 3.8 mmol/L (3.5-5.1); SODIUM 146 mmol/L (136-145)
[2017-10-02 08:54] LABS: CALC OSMOLALITY 294 mosm/kg (275-300); CREATININE - SERUM 0.7 mg/dL (0.6-1.3); UREA NITROGEN 17 mg/dL (7-18); eGFR NON AFRICAN AMERICAN > 90 mL/min (90-120)
--- NOTE | 2017-10-02 10:26 | PN ---
PATIENT:WASHINGTON ANGLIN MEDICAL RECORD: [id number] LOCATION:[facility] ADMISSION DATE: 09/24/17 PROGRESS NOTE DATE OF SERVICE: 10/01/2017 SUBJECTIVE: No new complaint. OBJECTIVE: The patient is showing improvement. He is feeding himself at times. He interacts much better with staff members. He likely will need physical therapy in the near future. On exam, mood is pleasant. Affect is bland. Speech remains tangential. Content of thought is negative for overt psychosis. Sensorium is unchanged. ASSESSMENT: No change in diagnosis. PLAN: 1. Continue all current medications. 2. Continue supportive therapy. TRANSINT:[id number] Voice Confirmation ID: [id number] DOCUMENT ID: [id number] YVETTE ALMANZAR III, MD at 1026 CC: [id number] DICTATION DATE: 10/01/17 1152 TRANSIT BUS DRIVER: 10/01/17 1207 ADM IN [place] [id number] [place] [address]
[2017-10-02 10:36] VITALS: BP 147/85
--- NOTE | 2017-10-02 10:40 | NUR ---
B) PATIENT HAS BEEN SLEEPY TODAY. HE HAS LEFT HIS BECERRIL ALONE AND HE HAS LEFT HIS IV INTACT. HE DOES HAVE A CDI IV CATH TO HIS RIGHT FOREARM AND HIS BECERRIL IS DRAINING CLEAR YELLOW URINE, NO BLOOD NOTED THIS AM. I) PROVIDE PRESCRIBED MEDS, ASSIST WITH EATING IF PATIENT IS AWAKE. R) PATIENT IS COMPLIANT MEDS. P) CONTINUE POC.
--- NOTE | 2017-10-02 13:00 | NUR ---
PATIENT DID RIP HIS IV OUT. DANIELLE BILLY SAID TO LEAVE IT OUT FOR NOW, WILL TRY TO RESTART LATER. RIGHT NOW PATIENT IS MORE AWAKE AND MOVING AROUND.
--- NOTE | 2017-10-02 18:00 | NUR ---
DR. HOPKINS CAME BY TO CHECK ON THE PATIENT, STAFF DID TELL HIM HE RIPPED HIS IV OUT AND DR. HOPKINS SAID TO "PUSH FLUIDS, PUSH FLUIDS, PUSH FLUIDS". PATIENT DID EAT AND DRINK WELL AT DINNER, WILL PASS THE INFORMATION ONTO THE NEXT SHIFT.
[2017-10-02 19:52] VITALS: BP 119/51
--- NOTE | 2017-10-03 00:33 | NUR ---
B) Patient alert and oriented to self, restless and picking at anything within reach, no aggressin noted, I) Administered scheduled medications, pushed fluid intake, monitored for safety, R) medication compliant, rambles and talks nonsence at times P) Continue plan of care.
--- NOTE | 2017-10-03 04:01 | PN ---
PATIENT:WASHINGTON ANGLIN MEDICAL RECORD: [id number] LOCATION:[facility] ADMISSION DATE: 09/24/17 PROGRESS NOTE DATE OF SERVICE: 10/02/2017 SUBJECTIVE: No new complaint. OBJECTIVE: The patient is doing much better. He is feeding himself much of the time. He did require Ativan to help with sleep last night, but aside from this no new problems. On exam, mood is euthymic. Affect is very shallow. Speech remains rather terse. Content of thought is negative for overt psychosis. Sensorium unchanged. IMPRESSION: No change in diagnosis. PLAN: 1. Continue all current medications. 2. Continue supportive therapy. TRANSINT:[id number] Voice Confirmation ID: [id number] DOCUMENT ID: [id number] YVETTE ALMANZAR III, MD at 0401 CC: [id number] DICTATION DATE: 10/02/17 1147 VENEER GLUE SPREADER: 10/02/17 1223 ADM IN [place] [id number] [place] [address]
[2017-10-03 07:30] VITALS: BP 126/79
--- NOTE | 2017-10-03 16:25 | NUR ---
B) PATIENT DID NOT SLEEP LAST NIGHT AND HE IS LETHARGIC TODAY, BUT HE DID HAVE P.T. COME AND WALK HIM WITH A WALKER AND GAIT BELT, HE DID TAKE A FEW STEPS. PATIENT IS CONFUSED, HE TRIES TO STAND AND WALK ON HIS OWN, BUT STAFF HAVE TO REDIRECT HIM BECAUSE HE IS NOT STEADY. I) PROVIDE PRESCRIBED MEDS AND REDIRECT NEEDED. R) PATIENT IS COMPLIANT WITH MEDS. P) CONTINUE POC.
--- NOTE | 2017-10-03 18:11 | NUR ---
PATIENT PULLED OUT BECERRIL CATHETER.
[2017-10-03 20:31] VITALS: BP 118/69
--- NOTE | 2017-10-03 21:05 | PN ---
PATIENT:WASHINGTON ANGLIN MEDICAL RECORD: [id number] LOCATION:[facility] ADMISSION DATE: 09/24/17 PROGRESS NOTE DATE OF SERVICE: 10/03/2017 SUBJECTIVE: No new complaint. OBJECTIVE: The patient continues to do somewhat better. He does feed himself. Physical therapy consult has been ordered. On exam, mood is for the most part euthymic. Affect remains shallow. Speech is very terse. Content of thought seems to focus primarily on somatic concerns. Sensorium shows no change. ASSESSMENT: No change in diagnosis. PLAN: 1. Maintain current medication. 2. Continue supportive therapy. TRANSINT:[id number] Voice Confirmation ID: [id number] DOCUMENT ID: [id number] YVETTE ALMANZAR III, MD at 2105 CC: [id number] DICTATION DATE: 10/03/17 1306 STUDIO COORDINATOR: 10/03/17 1325 ADM IN [facility] [address] [place] [address]
--- NOTE | 2017-10-04 01:21 | NUR ---
B) PATIENT IS ALERT AND ORIENTED TO SELF, VERY CONFUSED AND DISORIENTED, SITTING IN DAY ROOM, CALM AND COOPERATIVE WITH CARE. I) ADMINISTERED SCHEDULED MEDICATIONS, MONITORED FOR SAFETY AND FOR FALLS, R) MEDICATION COMPLIANT, PATIENT HAS PULLE DOUT HIS BECERRIL CATH AGAIN AND WILL NEED TO BE REPLACED. P) CONTINUE PLAN OF CARE,
[2017-10-04 08:00] VITALS: BP 99/63
--- NOTE | 2017-10-04 08:03 | NUR ---
LATE ENTRY FROM 10/03 VÍCTOR MET WITH PT'S , MATTHEW. SW DISCUSSED PREPARING FOR A "PLAN B" IN CASE PT DOES NOT COME OUT OF HIS CURRENT STATE AND [facility] CANNOT ACCEPT HIM BACK INTO THEIR CARE. PT'S BECAME TEARFUL DURING DISCUSSION. VÍCTOR DISCUSSED BEING PROACTIVE INSTEAD OF REACTIVE. MATTHEW STATED SHE WOULD PREFER PT GO INTO [facility] INSTEAD OF A PERSONAL INTERMEDIATE IF HE CAN NOT GO BACK TO [facility]. VCÍTOR WILL SEND PPW TO [facility] FOR REFERRAL.
--- NOTE | 2017-10-04 15:34 | NUR ---
B) PATIENT IS ALERT TODAY, HE IS TALKING MORE, NONSENSICAL, BUT HE IS MORE AWAKE. PT DID WALK HIM TODAY AND HE DID WELL. PATIENT IS ORIENTED TO SELF ONLY. HE IS FEEDING HIMSELF TODAY. I) PROVIDE PRESCRIBED MEDS. R) PATIENT IS COMPLIANT WITH MEDS. P) CONTINUE POC.
[2017-10-04 19:30] VITALS: BP 105/56
--- NOTE | 2017-10-04 21:52 | PN ---
PATIENT:WASHINGTON ANGLIN MEDICAL RECORD: [id number] LOCATION:[facility] ADMISSION DATE: 09/24/17 PROGRESS NOTE DATE OF SERVICE: 10/04/2017 SUBJECTIVE: No new complaint noted. OBJECTIVE: The patient continues to tolerate medications well. Behavior has been fairly well controlled. Staff is working on placement options. On exam, mood is euthymic. Affect rather constricted. Speech is terse. Content of thought is negative for overt psychosis. Sensorium is unchanged. ASSESSMENT: No change in diagnosis. PLAN: 1. Maintain current medication. 2. Continue supportive therapy. TRANSINT:[id number] Voice Confirmation ID: [id number] DOCUMENT ID: [id number] YVETTE ALMANZAR III, MD at 2152 CC: [id number] DICTATION DATE: 10/04/17 1309 POULTRY HATCHERY MANAGER: 10/04/17 1322 ADM IN [facility] [address] [place] [id number]
--- NOTE | 2017-10-05 01:24 | NUR ---
RECEIVED I N [place]. SITTING IN A RECLINING CHAIR. VERY CONFUSED. TAKING HIS CLOTHS OFF. PULLING AT HIS BECERRIL. CALM AND COOPERATIVE WITH CARE AND ASSESSMENTS. NO SIGNS OF AGGRESSION. RESTING IN RECLINER EYES CLOSED AT THIS TIME. CONTINUE PLAN OF CARE
--- NOTE | 2017-10-05 11:12 | NUR ---
CONFUSED AND DISORIENTED.REST IN RECLINER BUT OFTEN PULLS ON BECERRIL CATHETER TUBEING.URINE CLEAR IN TUBEING AND PATENT TO DEPENDANT DRAINAGE.WILL CONTINUE WITH PLAN OF CARE,MONITOR FOR CHANGES AND SAFETY.
--- NOTE | 2017-10-05 13:00 | NUR ---
GAVE PRN ATIVAN DUE TO ANXIETY AND AGGITATION. CONSTANTLY GETTING UP OUT OF CHAIR. WILL CONTINUE TO MONITOR.
[2017-10-05 16:04] VITALS: BP 124/62
[2017-10-05 19:30] VITALS: BP 128/71
--- NOTE | 2017-10-05 23:13 | NUR ---
RECEIVED IN HALLWAY. VERY CONFUSED. RESTING IN RECLINER WITH EYES CLOSED. CONTINUOUSLY PULLING AT HIS BECERRIL. REDIRECT AND REORIENT NEEDED. CONTINUES TO REST QUIETLY IN RECLINER AT NURSES STATION. CONTINUE PLAN OF CARE
--- NOTE | 2017-10-06 05:02 | PN ---
PATIENT:WASHIGNTON ANGLIN MEDICAL RECORD: [id number] LOCATION:[facility] ADMISSION DATE: 09/24/17 PROGRESS NOTE DATE OF SERVICE: 10/05/2017 SUBJECTIVE: No new verbal complaint. OBJECTIVE: The patient continues to present behavioral problem. He consistently pulls at his catheter. Last night, he bit his catheter and it had to be replaced. On exam, today the patient's mood is for the most part euthymic. Affect is somewhat expansive. Speech tends to be tangential. Content of thought focuses on somatic concerns. Sensorium shows no change. ASSESSMENT: No change in diagnosis. PLAN: 1. Maintain current medication. 2. Continue supportive therapy. TRANSINT:[id number] Voice Confirmation ID: [id number] DOCUMENT ID: [id number] YVETTE ALMANZAR III, MD at 0502 CC: [id number] DICTATION DATE: 10/05/17 0958 CV RN: 10/05/17 1201 ADM IN [place] [id number] [place] [address]
--- NOTE | 2017-10-06 14:02 | NUR ---
CONFUSED AND DISORIENTED.REQUIRES TOTAL CARE.PULLS ON BECERRIL CATHETER AND HAS BLOOD IN TUBEING.TEACHING DONE ABOUT DANGERS OF PULLING TUBEING BUT HAS SHORT TERM MEMORY LOSS AND DOES NOT COMPLY.REST IN RECLINER.WILL CONTINUE WITH PLAN OF CARE,MONITOR FOR CHANGES AND SAFETY.
--- NOTE | 2017-10-06 15:10 | NUR ---
DR. JUNE CALLED WAS INFORMED OF PT PULLING OUT CATH, TRAUMA TO URETHRA. DR. JUNE INFORMED TO RECATH IF PT CAN NOT VOID WITHOUT BECERRIL, ONLY PUT 5ML INSTEAD OF 10ML IN BALLOON, LESS TRAUMA TO URETHRA IF PT PULLS OUT BECERRIL. DR. JUNE INFORMED THAT WE CAN NOT KEEP RECATHING IF PT IS GOING TO CONTINUE TO PULL THEM OUT. WILL RESCAN BLADDER BEFORE REINSTERTING BECERRIL TO ENSURE HOW MUCH URINE RESIDUAL IS IN BLADDER.
--- NOTE | 2017-10-06 15:40 | NUR ---
CLEANSED PENIS WITH CASTILE SOAP, THEN CLEANSED WITH IODINE, INSERTED 16FR BECERIRL CATHETER WITHOUT ANY DIFFICULTY, 1100ML OUTPUT IMMEDIATELY. APPLIED STAT LOCK TO LEFT UPPER THIGH SECURELY. ONLY INFLATED BALLOON WITH 5ML SALINE PER DR. JUNE INSTRUCTIONS.
[2017-10-06 19:09] VITALS: BP 115/78
[2017-10-06 20:30] VITALS: BP 112/72
--- NOTE | 2017-10-06 22:24 | NUR ---
RECEIVED IN HALLWAY. LAYING IN RECLINING CHAIR OUTSIDE OF NURSES STATION. VERY CONFUSED. BECERRIL INTACT. CALM AND COOPERATIVE WITH CARE AND ASSESSMENTS. REDIRECT AND REORIENT NEEDED. CONTINUES TO REST IN RECLINER OUTSIDE OF NURSES STATION. CONTINUE PLAN OF CARE
--- NOTE | 2017-10-07 11:00 | NUR ---
CONFUSED AND DISORIENTED TO PLACE AND SITUATION. KNOWS HIS NAME ONLY. SITTING QUIETLY IN RECLINER MOST OF MORNING. COMPLIANT WITH TAKING MEDICATIONS. CONTINUE PLAN OF CARE AND MONITOR FOR SAFETY.
[2017-10-07 12:18] VITALS: BP 132/80
--- NOTE | 2017-10-07 13:10 | NUR ---
DID WRAP PATIENT'S BECERRIL CATHETER WITH KOBAN TO ENSURE HE WOULD NOT GRAB IT AND PULL IT OUT AGAIN.
[2017-10-07 20:35] VITALS: BP 91/59
--- NOTE | 2017-10-07 21:17 | NUR ---
RECEIVED IN HALLWAY OUTSIDE OF NURSES STATION. LAYING IN RECLINER WITH EYES OPEN. VERY CONFUSED. BECERRIL CATH INTACT. PATIENT IS NOT PULLING ON BECERRIL AT THIS TIME. CALM AND COOPERATIVE WITH CARE AND ASSESSMENTS. NO SIGNS OF AGGRESSION. CONTINUES TO REST QUIETLY IN HALLWAY. CONTINUE PLAN OF CARE
--- NOTE | 2017-10-08 03:26 | NUR ---
RESTLESS/INCREASING ANXIETY. PRN ATIVAN 1 MG IM GIVEN FOR ANXIETY
--- NOTE | 2017-10-08 10:17 | PN ---
PATIENT:WASHINGTON ANGLIN MEDICAL RECORD: [id number] LOCATION:[facility] ADMISSION DATE: 09/24/17 PROGRESS NOTE DATE OF SERVICE: 10/07/2017 SUBJECTIVE: No new complaint. OBJECTIVE: The patient continues to show good behavioral control. It appears that the patient will likely be transferred to a custodial as [place] will not be able to manage his current status. PHYSICAL EXAMINATION: On exam, mood is euthymic. Affect is very constricted. Speech is terse. Content of thought focuses only on somatic concerns. Sensorium shows no change. ASSESSMENT: No change in diagnosis. PLAN: 1. Maintain current medication. 2. Continue supportive therapy. TRANSINT:[id number] Voice Confirmation ID: [id number] DOCUMENT ID: [id number] YVETTE ALMANZAR III, MD at 1017 CC: [id number] DICTATION DATE: 10/07/17 1358 INSPECTOR BALANCE TRUING: 10/07/17 1425 ADM IN [place] [id number] [place] [address]
[2017-10-08 10:32] VITALS: BP 119/83
[2017-10-08] MEDS ORDERED: CARDURA2 MG PO (11:30)
--- NOTE | 2017-10-08 11:30 | NUR ---
SW SPOKE WITH PT'S , MATTHEW, TO DISCUSS RECENT NH AND [facility] THAT STATED THEY WILL NOT ACCEPT PT. SW COMFORTED HER AND STATED SHE WILL CALL IN OTHER PLACEMENTS AND GET HIM ASSESSED FOR NURSING HOMES IN THE [facility]. PT'S STATED SHE CANNOT PUT HIM IN A PERSONAL RESIDENTIAL DUE TO HIM HAVING MORE NEEDS WITH CARE. VERBALIZED UNDERSTANDING OF DISCUSSION AND CONSENTED TO PT'S INFORMATION BEING SENT OUT TO OTHER FACILITIES.
[2017-10-08] MEDS ORDERED: PROSCAR5 MG PO (11:31)
[2017-10-08] MEDS ORDERED: DESERYL100 MG PO (11:31)
--- NOTE | 2017-10-08 14:33 | NUR ---
Nutrition Follow Up: Chart reviewed. Pt is eating 70% meal avg on a regular pureed diet. He is receiving Ensure TID. +BM 10/06/17. Meds and labs reviewed. Rec continue regular diet with PRODUCT SUPPORT SPECIALIST recs for consistencies. RD following.
[2017-10-08 20:22] VITALS: BP 140/70
[2017-10-08 20:59] LABS: BASOPHILS 0.1 % (0-2); EOSINOPHILS 1.4 % (0-7); HEMATOCRIT 43.5 % (42.0-54.0); HEMOGLOBIN 14.4 g/dL (13.5-17.5); IMMATURE GRANULOCYTES 0.3 % (0-5); LYMPHOCYTES 12.7 % (15-50); MCH 33.4 pg (26.0-34.0); MCHC 33.1 g/dL (31.0-37.0); MCV 100.9 fL (80.0-100.0); MEAN PLATELET VOLUME 10.9 fL (7.4-10.4); MONOCYTES 6.7 % (2-11); NEUTROPHILS 78.8 % (40-80); PLATELET COUNT 213 10x3/uL (130-400); RBC 4.31 10x6/uL (4.20-6.10); RDW 13.1 % (11.5-14.5); WBC 9.5 10x3/uL (4.8-10.8)
[2017-10-08 21:11] LABS: CALC OSMOLALITY 290 mosm/kg (275-300); CALCIUM 8.8 mg/dL (8.5-10.1); CARBON DIOXIDE 30.4 mmol/L (21.0-32.0); CHLORIDE - SERUM 107 mmol/L (98-107); CREATININE - SERUM 0.6 mg/dL (0.6-1.3); GLUCOSE 157 mg/dL (74-106); POTASSIUM - SERUM 4.4 mmol/L (3.5-5.1); SODIUM 143 mmol/L (136-145); UREA NITROGEN 22 mg/dL (7-18); eGFR NON AFRICAN AMERICAN > 90 mL/min (90-120)
--- NOTE | 2017-10-08 22:14 | NUR ---
RECEIVED IN HALLWAY SITTING IN A RECLINER OUTSIDE OF NURSES STATION. VERY CONFUSED. PULLING AT HIS BECERRIL CATH. CALM AND COOPERATIVE WITH CARE AND ASSESSMENTS. NO SIGNS OF AGGRESSION. CONTINUES TO REST IN RECLINER AT NURSES STATION. ONE ON ONE FOR SAFETY. CONTINUE PLAN OF CARE
[2017-10-09 08:00] VITALS: BP 128/64
--- NOTE | 2017-10-09 08:00 | NUR ---
Received pt in dining room for b'fast, alert, calm, quite confused, no s/s pain/distress. Med compliant, present for group. Feeds self after setup, sometimes requiring encouragement. Cont POC including meds and group therapy.
--- NOTE | 2017-10-09 08:12 | NUR ---
BLADDER SCAN. 999 ML SHOWN. ATTEMPT TO FLUSH. UNABLE TO GET RETURN. REPLACE BECERRIL WITH 16 FR.
--- NOTE | 2017-10-09 09:31 | PN ---
PATIENT:WASHINGTON ANGLIN MEDICAL RECORD: [id number] LOCATION:[facility] ADMISSION DATE: 09/24/17 PROGRESS NOTE DATE OF SERVICE: 10/08/2017 SUBJECTIVE: No new complaint noted. OBJECTIVE: The patient is being assessed by [facility] for possible transfer today. He is stable and shows no combativeness. On exam, mood is euthymic. Affect constricted. Speech is terse. Content of thought focuses on somatic concerns. Sensorium is unchanged. ASSESSMENT: No change in diagnosis. PLAN: 1. Continue current treatment plan. 2. Anticipate discharge in the near future. TRANSINT:[id number] Voice Confirmation ID: [id number] DOCUMENT ID: [id number] YVETTE ALMANZAR III, MD at 0931 CC: [id number] DICTATION DATE: 10/08/17 1213 ROCK DUST SPRAYER: 10/08/17 1235 ADM IN [place] [id number] [place] [address]
[2017-10-09 20:05] VITALS: BP 113/61
--- NOTE | 2017-10-09 21:45 | NUR ---
RECEIVEDIN HALLWAY. RESTING IN A RECLINER WITH EYES OPEN. BECERRIL INTACT. NOT PULLING ON BECERRIL. CALM AND COOPERATIVE WITH CARE AND ASSESSMENTS. NO SIGNS OF AGGRESSION. ATTEMPTS TO STAND WITHOUT ASSIST AT TIMES. RESTING IN RECLINER IN HALLWAY AT THIS TIME. ONE ON ONE FOR SAFETY. CONTINUE PLAN OF CARE
--- NOTE | 2017-10-10 02:26 | NUR ---
PATIENT SITTING IN RECLINER IN HALLWAY AT NURSES STATION. VERY CONFUSED. CHEWING ON BECERRIL TUBING. ATTEMPTING TO STAND WITHOUT ASSISTANCE. INCREASING ANXIETY WITH REDIRECTION. PRN ATIVAN 1 MG IM GIVEN FOR ANXIETY.
--- NOTE | 2017-10-10 08:07 | PN ---
PATIENT:WASHINGTON ANGLIN MEDICAL RECORD: [id number] LOCATION:[facility] ADMISSION DATE: 09/24/17 PROGRESS NOTE DATE OF SERVICE: 10/09/2017 SUBJECTIVE: No new complaint noted. OBJECTIVE: The patient remains very cooperative. He has responded quite well to the use of trazodone for insomnia. He also responds exceptionally well to p.r.n. use of Ativan for control of agitation. The patient will be evaluated regarding possible [facility] placement. On exam, mood today is for the most part euthymic. Affect is rather shallow. Speech tends to be tangential. Content of thought is negative for overt psychosis. Sensorium shows no change. ASSESSMENT: No change in diagnosis. PLAN: 1. Continue current treatment plan. 2. Continue working on aftercare disposition. TRANSINT:[id number] Voice Confirmation ID: [id number] DOCUMENT ID: [id number] YVETTE ALMANZAR III, MD at 0807 CC: [id number] DICTATION DATE: 10/09/17 1157 SHOT COAT TENDER: 10/09/17 1246 ADM IN [facility] [address] [place] [id number]
[2017-10-10 11:59] VITALS: BP 140/66
--- NOTE | 2017-10-10 11:59 | NUR ---
B) PATIENT REMAINS CONFUSED, HE USES W[employer] TO COMMUNICATE, HE IS WALKIG WITH STAFF, A WALKER WITH ASSIST, HE HAS HIS BECERRIL CATHETER IN PLACE THAT IS DRAINING BHAVANA COLORED URINE. PATIENT KNOWS HIS NAME ONLY. I) PROVIDE PRESCRIBED MEDS. R) PATIENT IS COMPLIANT WITH MEDS AND HE IS EATING WELL, NO AGGRESSION NOTED TODAY. P) CONTINUE POC.
--- NOTE | 2017-10-10 15:52 | NUR ---
VÍCTOR MET WITH PT'S , MATTHEW, TO DISCUSS DISCHARGE PLANS. [facility] DID NOT ACCEPT PT INTO CARE. VÍCTOR CONTACTED [facility] FOR OTHER NH AND THEY ARE EVALUATING TODAY. VÍCTOR STATED SHE WOULD LET KNOW WHEN SHE HEARS A DECISION.
--- NOTE | 2017-10-10 20:19 | NUR ---
RECEIVED IN DAYROOM. SITTING IN RECLINER. VERY CONFUSED. CALM AND COOPERATIVE WITH CARE AND ASSESSMENT. NO SIGNS OF AGGRESSION. BECERRIL INTACT. PATIENT NOT PULLING ON BECERRIL AT THIS TIME. ATTEMPTS TO STAND WITHOUT ASSISTANCE. ALARM SOUNDING. ENCOURAGE EXPRESS NEEDS. REDIRECT AND REORIENT NEEDED. PATIENT RESTING IN RECLINER AT THIS TIME. ONE ON ONE CARE FOR SAFETY. CONTINUE PLAN OF CARE.
[2017-10-10 22:00] VITALS: BP 144/99
[2017-10-11 08:02] LABS: CALC OSMOLALITY 277 mosm/kg (275-300); CALCIUM 8.9 mg/dL (8.5-10.1); CARBON DIOXIDE 26.3 mmol/L (21.0-32.0); CHLORIDE - SERUM 103 mmol/L (98-107); CREATININE - SERUM 0.6 mg/dL (0.6-1.3); POTASSIUM - SERUM 4.3 mmol/L (3.5-5.1); SODIUM 140 mmol/L (136-145); UREA NITROGEN 11 mg/dL (7-18); eGFR NON AFRICAN AMERICAN > 90 mL/min (90-120)
[2017-10-11 08:03] LABS: GLUCOSE 101 mg/dL (74-106)
--- NOTE | 2017-10-11 08:11 | NUR ---
RESTING IN HALLWAY OUTSIDE OF NURSES STATION WITH EYES CLOSED. RESPONDS TO VOICE. VERY CONFUSED. CALM AND COOPERATIVE WITH CARE AND ASSESSMENTS. NO SIGNS OF AGGRESSION. BECERRIL INTACT. REDIRECT AND REORIENT NEEDED. CONTINUE TO REST QUIETLY IN RECLINER IN HALLWAY. CONTINUE PLAN OF CARE
--- NOTE | 2017-10-11 10:07 | PN ---
PATIENT:WASHINGTON ANGLIN MEDICAL RECORD: [id number] LOCATION:[facility] ADMISSION DATE: 09/24/17 PROGRESS NOTE DATE OF SERVICE: 10/10/2017 SUBJECTIVE: No new complaint. OBJECTIVE: The patient's is examining possible nursing homes for placement. The patient himself has been stable in the last 24 hours. On exam, mood is euthymic. Affect is bland. Speech is rather terse. Content of thought is negative for overt psychosis. Sensorium shows no change. ASSESSMENT: No change in diagnosis. PLAN: 1. Maintain current medication. 2. Continue supportive therapy. TRANSINT:[id number] Voice Confirmation ID: [id number] DOCUMENT ID: [id number] YVETTE ALMANZAR III, MD at 1007 CC: [id number] DICTATION DATE: 10/10/17 1152 LACQUER SPRAY BOOTH OPERATOR: 10/10/17 1213 ADM IN [facility] [address] [place] [id number]
[2017-10-11 10:47] VITALS: BP 138/81
[2017-10-11 19:30] VITALS: BP 114/74
--- NOTE | 2017-10-11 22:03 | NUR ---
FLUSHED BECERRIL WITH 50 CC WATER, NO OBSTRUCTION NOTED.
--- NOTE | 2017-10-12 05:29 | NUR ---
B) Patient is alert and oriented to self, restless at times, very confused and unaware of where he is, I) Administered scheduled medications, flushed billingsley cath. R) Medications compliant, restless P) Continue plan of care.
--- NOTE | 2017-10-12 07:34 | NUR ---
B) PATIENT IS SLEEPING IN HIS BED, HE IS CONFUSED, HE KNOWS HIS NAME ONLY. HE DOES HAVE AN INDWELLING BECERRIL THAT HAS BLOOD TINGED URINE AT THIS TIME. HOME COMPANION DID RELAY THAT THE PATIENT HAD A FEW BLOOD CLOTS WHEN HE FLUSHED IT ON HIS SHIFT, WILL ENCOURAGE FLUIDS TODAY. I) PROVIDE PRESCRIBED MEDS. R) PATIENT REMAINS SLEEPY. P) CONTINUE POC.
[2017-10-12 08:00] VITALS: BP 150/78
--- NOTE | 2017-10-12 17:00 | NUR ---
Dr. Becker here and he requests that a bladder scan be done, did scan patient's badder and there is 674 ml in bladder, called Dr. Becker and he says to take the billingsley out and reinsert a new one.
--- NOTE | 2017-10-12 18:30 | NUR ---
DISCONTUNED CURRENT BECERRIL, REINSERTED A NEW BECERRIL WITH IMMEDIATE CLOUDY URINE RETURN.
--- NOTE | 2017-10-12 18:43 | NUR ---
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 APPLIED A MEPILEX.
--- NOTE | 2017-10-13 03:51 | NUR ---
B) Patient is alert and oriented to self, very confused and unaware of surroundings, Kaye cath draining bloody urine early in shift, draining alissa urine at end of shift, I) Administered scheduled medications, monitored for safety, monitored Kaye for output and blood, R) Medication compliant, resting quietly in bed in the hallway for safety P) Continue plan of care.
[2017-10-13 07:00] VITALS: BP 88/42
--- NOTE | 2017-10-13 17:04 | NUR ---
ORIENTED TO SELF ONLY.HAS BECERRIL WITH BLOODY DRAINAGE.PULLS ON TUBEING.REQUIRES SPOONFEEDING PER STAFF.COMPLIANT WITH MEDS.MEDS CRUSHED AND GIVEN IN APPLESAUCE.WILL CONTINUE WITH PLAN OF CARE,MONITOR FOR CHANGES AND SAFETY.
[2017-10-13 19:30] VITALS: BP 140/77
--- NOTE | 2017-10-13 21:39 | NUR ---
RECEIVED IN HALLWAY. RESTING IN RECLINER. PULLING ON HIS BECERRIL AT TIMES. CALM AND COOPERATIVE WITH CARE AND ASSESSMENTS. NO SIGNS OF AGGRESSION. REDIRECT AND REORIENT NEEDED. RESTING IN BED IN HALLWAY FOR SAFETY AT THIS TIME. CONTINUE PLAN OF CARE
[2017-10-14 08:17] VITALS: BP 119/68
--- NOTE | 2017-10-14 09:39 | PN ---
PATIENT:WASHINGTON ANGLIN MEDICAL RECORD: [id number] LOCATION:[facility] ADMISSION DATE: 09/24/17 PROGRESS NOTE DATE OF SERVICE: 10/11/2017 SUBJECTIVE: No new complaint. OBJECTIVE: The patient is being assessed by nursing facility in the [facility]. He is also being assessed by one from [facility] hopefully a determination can be made very quickly. On exam, mood is euthymic. Affect is bland. Speech is quite terse. Content of thought focuses only on somatic concerns. Sensorium is unchanged. ASSESSMENT: No change in diagnosis. PLAN: 1. Continue all current medications. 2. Continue supportive therapy. TRANSINT:[id number] Voice Confirmation ID: [id number] DOCUMENT ID: [id number] YVETTE ALMANZAR III, MD at 0939 CC: [id number] DICTATION DATE: 10/11/17 1121 MACHINE TRIMMER: 10/11/17 1135 ADM IN [facility] [address] [place] [address]
--- NOTE | 2017-10-14 10:00 | NUR ---
AWAKE AND ORIENTED TO SELF ONLY. VERY CONFUSED AND DISORIENTED. CALM AND COOPERATIVE WITH TAKING MEDICATIONS CRUSHED IN APPLESAUCE. MONITOR FOR SAFETY AND CHANGES. BECERRIL CATHETER IN PLACE WITH SMALL AMOUNT OF BLOODY URINE. WILL CONTINUE WITH PLAN OF CAFE.
[2017-10-14 19:21] VITALS: BP 110/88
--- NOTE | 2017-10-14 19:59 | NUR ---
RECEIVED IN HALLWAY. SITTING OUTSIDE OF NURSES STATION IN A RECLINING CHAIR. BECERRIL INTACT. BLOOD COLORED LIQUID IN BECERRIL BAG. CALM AND COOPERATIVE WITH CARE AND ASSESSMENTS. REDIRECT AND REORIENT NEEDED. CONTINUES TO REST QUIETLY IN ENGLISH. CONTINUE PLAN OF CARE
--- NOTE | 2017-10-15 06:00 | NUR ---
NO URINE OUTPUT INTO BECERRIL. ATTEMPTED TO FLUSH BUT OBTAINED NO RETURN FROM BECERRIL. DOCTOR FORTUNATO CALLED. NEW ORDERS FOR Q SHIFT BECERRIL CARE. BLADDER SCAN PNR AND CHANGE BECERRIL NEEDED TO CLEAR OBSTRUCTION.
--- NOTE | 2017-10-15 06:06 | PN ---
PATIENT:WASHINGTON ANGLIN MEDICAL RECORD: [id number] LOCATION:[facility]on ADMISSION DATE: 09/24/17 PROGRESS NOTE DATE OF SERVICE: 10/14/2017 SUBJECTIVE: No new complaint. OBJECTIVE: The patient is doing reasonably well. We are waiting on the final determination from a correction for transfer. He has done well over the last several days. On exam, mood for the most part euthymic. Affect constricted. Speech is terse. Content of thought is negative for overt psychosis. Sensorium is unchanged. ASSESSMENT: No change in diagnosis. PLAN: 1. Continue current medications. 2. Continue supportive therapy. TRANSINT:[id number] Voice Confirmation ID: [id number] DOCUMENT ID: [id number] YVETTE ALMANZAR III, MD at 0606 CC: [id number] DICTATION DATE: 10/14/17 1311 DEEP TISSUE MASSAGE THERAPIST: 10/14/17 [address] [facility] [address] [place] [address]
[2017-10-15 11:08] VITALS: BP 125/72
--- NOTE | 2017-10-15 14:28 | NUR ---
Nutrition Follow Up: Chart reviewed. Pt is eating 52% meal avg on a regular puree diet. He is receiving Ensure TID. +BM 10/15/17. Meds and labs reviewed. Rec continue current diet, supplement regimen. RD following.
--- NOTE | 2017-10-15 16:26 | NUR ---
AWAKE AND ORIENTED TO SELF ONLY. LYING IN RECLINER IN HALLWAY RESTING WITH EYES CLOSED AFTER A NEW BECERRIL CATHETER WAS INSERTED. CALM AND COOPERATIVE WITH ASSESSMENT. PRESCRIBED MEDICATION COMPLIANT CRUSHED IN APPLESAUCE. BECERRIL CATHETER PATENT WITH YELLOW STRAW COLOR URINE. SITTING ON A BLUE FOAM PAD FOR COMFORT TO COCCYX AREA. WILL CONTINUE PLAN OF CARE.
--- NOTE | 2017-10-15 16:57 | NUR ---
FAMILY UPDATED ON PATIENTS CONDITION AND THAT HE WAS [facility].
[2017-10-15 20:06] VITALS: BP 145/60
--- NOTE | 2017-10-15 22:32 | NUR ---
RECEIVED IN HALLWAY. SITTING IN A RECLINING CHAIR OUTSIDE OF NURSES STATION. ATTEMPTS TO STAND WITHOUT ASSIST. PULLING ON BECERRIL AT TIMES. CHEWING ON ITEMS WITHIN HIS REACH. VERY CONFUSED. ONE ON ONE CARE FOR SAFETY. REDIRECT AND REORIENT NEEDED. CONTINUES TO SIT EYES OPEN IN RECLINER. CONTINUE PLAN OF CARE
--- NOTE | 2017-10-16 05:14 | PN ---
PATIENT:WASHINGTON ANGLIN MEDICAL RECORD: [id number] LOCATION:[facility] ADMISSION DATE: 09/24/17 PROGRESS NOTE DATE OF SERVICE: 10/15/2017 SUBJECTIVE: No new complaint. OBJECTIVE: We are waiting final approval from [facility]. As soon as this is obtained, the patient will be discharged. On exam, mood is euthymic. Affect is bland. Speech is somewhat terse. Content of thought is negative for overt psychosis. Sensorium unchanged. ASSESSMENT: No change in diagnosis. PLAN: 1. Maintain all current medications. 2. Continue supportive therapy. TRANSINT:[id number] Voice Confirmation ID: [id number] DOCUMENT ID: [id number] YVETTE ALMANZAR III, MD at 0514 CC: [id number] DICTATION DATE: 10/15/17 1042 STOCK PATCH SAWYER: 10/15/17 1110 ADM IN [place] [id number] [place] [id number]
--- NOTE | 2017-10-16 05:18 | NUR ---
PATIENT PULLED OUT BECERRIL CATH.
[2017-10-16 08:00] VITALS: BP 136/78
--- NOTE | 2017-10-16 10:00 | NUR ---
RESTING IN RECLINER, CONFUSED AND DISORIENTED. COOPERATIVE WITH ASSESSMENT. COMPLIANT WITH TAKING PRESCRIBED MEDICATIONS. MONITOR FOR SAFETY AND CHANGES. CONTINUE PLAN OF CARE. BECERRIL CATHETER PATENT WITH CONCENTRATED URINE, WITH NO ISSUES OF PULLING AT CATHETER.
[2017-10-16 19:43] VITALS: BP 138/95
--- NOTE | 2017-10-17 02:00 | NUR ---
B) Patient is alert and restless, pulling at pink pad, blanket and clothing, I) Administered scheduled medications, monitored for safety R) Medication compliant, resting in the hallway for safety, P) Continue plan of care.
[2017-10-17 08:00] VITALS: BP 130/80
--- NOTE | 2017-10-17 08:10 | NUR ---
B) PATIENT IS AWAKE THIS AM, HE DID NOT SLEEP WELL LAST NIGHT. HE IS ORIENTED TO SELF ONLY. FAXED D/C ORDERS AND MARD TO FACILITY. PATIENT HAS INDWELLING BECERRIL INTACT. I) PROVIDE PRESCRIBED. R) PATIENT IS COMPLIANT WITH MEDS CRUSHED AND PUT IN APPLESAUCE OR PUDDING. P) CONTINUE POC.
--- NOTE | 2017-10-17 08:22 | PN ---
PATIENT:WASHINGTON ANGLIN MEDICAL RECORD: [id number] LOCATION:[facility] ADMISSION DATE: 09/24/17 PROGRESS NOTE DATE OF SERVICE: 10/16/2017 SUBJECTIVE: No new complaint. OBJECTIVE: The patient is doing fairly well. He does become more confused at night, but this appears to be baseline. On exam, mood is euthymic. Affect is bland. Speech is terse. Content of thought focuses on somatic concerns. Sensorium unchanged. ASSESSMENT: No change in diagnosis. PLAN: 1. Continue all current medications. 2. Anticipate discharge tomorrow. TRANSINT:[id number] Voice Confirmation ID: [id number] DOCUMENT ID: [id number] YVETTE ALMANZAR III, MD at 0822 CC: [id number] DICTATION DATE: 10/16/17 112 KINESEOLOGIST: 10/16/17 1202 ADM IN [facility] [address] [place] [address]
--- NOTE | 2017-10-17 10:57 | NUR ---
SW SPOKE WITH PT'S SPOUSE, MATTHEW, ABOUT DISCHARGE PLANS FOR TODAY AND UPDATED HER ON PT BEING PICKED UP TODAY AT 12PM. SPOUSE VERBALIZED UNDERSTANDING OF DISCUSSION.
--- NOTE | 2017-10-17 12:20 | NUR ---
CALLED REPORT TO FACILITY. PATIENT D/C'D OFF OF UNIT WITH STAFF ASSIST AND IRON MINER. PATIENT IS NOW OFF THE UNIT.
--- NOTE | 2017-10-30 10:15 | DS ---
PATIENT:WASHINGTON ANGLIN :38 MEDICAL RECORD: [id number] DISCHARGE SUMMARY ADMISSION DATE: 09/24/17 DISCHARGE DATE: 10/17/17 DATE OF ADMISSION: 09/24/2017. DATE OF DISCHARGE: 10/17/2017. HISTORY: The patient has a past history of Lewy body dementia. He was transferred from [facility]. He had developed severe urinary tract infection and subsequently was admitted to the medical floor. He became very disoriented and confused and was thereafter sent to [facility]. He had previously been treated with Aricept and antianxiety medication. For further details, please see previously dictated history. The patient was seen in consultation by Dr. Becker. Dr. Bceker noted several comorbidities including hematuria, acute kidney injury, hypertension, past history of CVA, gastroesophageal reflux disease, benign prostatic hyperplasia, hyperlipidemia, vitamin D deficiency, COPD, and a past history of alcohol abuse. COURSE IN THE HOSPITAL: The patient was managed very conservatively. He was not given any type of antipsychotic medications throughout hospitalization. He was placed on trazodone to help him sleep at night. He had several episodes of agitation, but was able to be redirected. Close contact was maintained with the patient's family. Decision was made to transfer to a more secure penitentiary setting as the patient continued to have very significant confusion. Arrangements were made for the patient to be placed at [facility]. By the time of discharge, the patient was felt to be entirely stable to enter the penitentiary environment. FINAL DIAGNOSES: AXIS I: Lewy body dementia. AXIS II: No diagnosis. AXIS III: Recent urinary tract infection -- improving, chronic atrial fibrillation, hypertension, past history of cerebrovascular disease, past history of alcohol abuse, gastroesophageal reflux disease, chronic obstructive pulmonary disease, benign prostatic hyperplasia, hyperlipidemia, and vitamin D deficiency. AXIS IV: Moderate. AXIS V: 40. PLAN: 1. The patient is transferred to penitentiary in stable condition. 2. Diet and activities as tolerated. 3. Follow up through primary care physician assigned to the penitentiary. TRANSINT:[id number] Voice Confirmation ID: [id number] DOCUMENT ID: [id number] DISCHARGE SUMMARY REPORT [id number] WASHINGTON ANGLIN Jack ALMANZAR III, YVETTE Mart MD at 1015 CC: [id number] DICTATION DATE: 10/17/17 1102 TOOL HARDENER: 10/17/17 1127 DIS IN 10/17/17 [facility] [address] [place] [address]
== END 2017-10-17 12:20 | DRG 57 ==
LOC: D.PSYCH 18:36
PROVIDERS: Family Medicine; Internal Medicine Nephrology; ADMIT Psychiatry & Neurology Psychiatry
PROC: 0T9B70Z Drainage of Bladder with Drainage Device, Via Natural or Artificial Opening (ICD-10-PCS; principal; 2017-10-15)
DX: G31.83 Neurocognitive disorder with Lewy bodies (principal); F02.81 Dementia in other diseases classified elsewhere, unspecified severity, with behavioral disturbance; I69.954 Hemiplegia and hemiparesis following unspecified cerebrovascular disease affecting left non-dominant side; N17.9 Acute kidney failure, unspecified; I48.2 Chronic atrial fibrillation; Z79.01 Long term (current) use of anticoagulants; N40.1 Benign prostatic hyperplasia with lower urinary tract symptoms; R33.8 Other retention of urine; J44.9 Chronic obstructive pulmonary disease, unspecified; K21.9 Gastro-esophageal reflux disease without esophagitis; K59.00 Constipation, unspecified; I10 Essential (primary) hypertension; Z74.09 Other reduced mobility; E55.9 Vitamin D deficiency, unspecified; Z95.0 Presence of cardiac pacemaker; F10.10 Alcohol abuse, uncomplicated; Z72.0 Tobacco use